=== PATIENT | male | born 1985 | race Caucasian/White ===

== ENCOUNTER 2016-09-28 16:32 | Emergency (ER) | payer BC | END 2016-09-28 20:12 | disposition home or self-care (01) | LOC: ER 16:32 | DX: R07.89 Other chest pain (principal); M25.511 Pain in right shoulder; M25.512 Pain in left shoulder; R11.0 Nausea; R06.00 Dyspnea, unspecified; F31.9 Bipolar disorder, unspecified; I10 Essential (primary) hypertension; E66.9 Obesity, unspecified; F17.220 Nicotine dependence, chewing tobacco, uncomplicated; Z79.899 Other long term (current) drug therapy | CPT/HCPCS: 36415; 96360; 96361 ==